=== PATIENT | female | born 1985 | race Caucasian/White ===

== ENCOUNTER → 2021-06-10 11:47 | Outpatient (CLI) | payer OTHER, SELFPAY ==
[2021-06-10 14:07] LABS: HCG Quantitative /Beta subunit 53765 mIU/mL
== END ==
PROVIDERS: Referring Provider Family Medicine; Visit Provider Family Medicine
DX: Z34.90 Encounter for supervision of normal pregnancy, unspecified, unspecified trimester (principal)
CPT/HCPCS: 36415; 84702

== ENCOUNTER → 2021-06-12 10:22 | Outpatient (CLI) | payer OTHER, SELFPAY ==
[2021-06-12 12:06] LABS: HCG Quantitative /Beta subunit 50271 mIU/mL
== END ==
PROVIDERS: Referring Provider Family Medicine; Visit Provider Family Medicine
DX: Z3A.01 Less than 8 weeks gestation of pregnancy (principal); Z34.91 Encounter for supervision of normal pregnancy, unspecified, first trimester
CPT/HCPCS: 36415; 84702

== ENCOUNTER → 2021-06-12 17:21 | Outpatient (CLI) | payer OTHER, SELFPAY ==
--- NOTE | 2021-06-12 17:22 | DI.US.S_ITS ---
PROCEDURE: US OB <= 14 WEEKS FETUS INDICATIONS: CONCERN FOR MISCARRIAGE OR ECTOPIC OUTSIDE/PRIOR DATING DATA: Last menstrual period (LMP): 04/08/2021 LMP-based estimated date of delivery (JUVENAL): Not listed First dating scan (date and location): 06/12/2021. Estimated date of delivery (JUVENAL) from first dating scan: 02/02/2021. TECHNIQUE: Real-time scanning was performed of the fetus and maternal pelvic organs, with image documentation. Endovaginal scanning was also performed to better visualize the fetus and maternal ovaries. COMPARISON: None. FINDINGS: Embryo: There is a possible tiny crown-rump length with no heartbeat identified. Possible crown-rump length measures 0.27 cm, 5 weeks 6 days. An irregular gestational sac is noted. Small perigestational bleed measuring 0.9 x 1.3 x 1.3 cm. Heart rate: Not identified Measurement variability in dating: +/- 4 weeks by LMP, +/- 7 days by mean sac diameter (use before 6 weeks gestation if crown-rump length not able to be measured), +/- 5 days by crown-rump length (up to 8 weeks 6 days gestation), +/- 7 days by crown-rump length (up to 13 weeks 6 days gestation). Maternal organs: Ovaries are unremarkable. IMPRESSION: Question of very early crown-rump length without heartbeat. At this stage of , it is possible to see a very early crown-rump length without heartbeat. Irregular shape of gestational sac. Recommend correlation with serial beta hCGs. Consider follow-up ultrasound in 1-2 weeks. Dictated by: Yifan Esteves M.D. on 06/12/2021 at 20:10 Approved by: Yifan Esteves M.D. on 06/12/2021 at 20:13
== END ==
PROVIDERS: Referring Provider Family Medicine; Visit Provider Family Medicine
DX: O20.0 Threatened abortion (principal); Z3A.01 Less than 8 weeks gestation of pregnancy
CPT/HCPCS: 36415; 76801; 76817; 84702

== ENCOUNTER → 2021-06-18 12:13 | Outpatient (CLI) | payer OTHER, SELFPAY ==
[2021-06-18 13:39] LABS: HCG Quantitative /Beta subunit 1319 mIU/mL
== END ==
PROVIDERS: Referring Provider Family Medicine; Visit Provider Family Medicine
DX: Z34.90 Encounter for supervision of normal pregnancy, unspecified, unspecified trimester (principal); Z3A.01 Less than 8 weeks gestation of pregnancy
CPT/HCPCS: 36415; 84702

== ENCOUNTER → 2021-06-27 12:42 | Outpatient (CLI) | payer OTHER, SELFPAY ==
[2021-06-27 15:11] LABS: HCG Quantitative /Beta subunit 55 mIU/mL
== END ==
PROVIDERS: Referring Provider Family Medicine; Visit Provider Family Medicine
DX: Z3A.01 Less than 8 weeks gestation of pregnancy (principal)
CPT/HCPCS: 36415; 84702